=== PATIENT | male | born 1985 | race Caucasian/White ===

== ENCOUNTER 2019-02-17 13:40 | Observation (INO) | payer MEDICAID, OTHER ==
--- NOTE | 2019-02-17 13:48 | C.PDOC ---
History Of Present Illness 33 yr old male w/ no ppmhx p/w abdominal pain, RLQ x2d. Pt notes pain occured starting last night, constant, without radiation, first time occurence. He denies any n/v, constipation or diarrhea. No dark or bloody stool. No trauma or fall. No genital pain or groin pain. No rashes, fever, chills or night sweats. Did not take any medication for the pain. No other complaints. Time Seen by Provider: 02/17/19 13:48 Chief Complaint (Nursing): Abdominal Pain Past Medical History Vital Signs: Last Vital Signs Temp 97.8 F 02/17/19 13:44 Pulse 97 H 02/17/19 13:44 Resp 18 02/17/19 13:44 BP 174/98 H 02/17/19 13:44 Pulse Ox 94 L 02/17/19 13:44 Primary Care Provider: Jay,Med Surg Family History: States: No Known Family Hx - Social History Hx Alcohol Use: No Hx Substance Use: No - Immunization History Hx Tetanus Toxoid Vaccination: No Hx Influenza Vaccination: No Hx Pneumococcal Vaccination: No Review Of Systems Constitutional: Negative for: Fever, Chills, Weakness Eyes: Negative for: Pain, Conjunctivae Inflammation ENT: Negative for: Ear Pain, Ear Discharge, Nose Congestion Cardiovascular: Negative for: Chest Pain, Paroxysmal Noc. Dyspnea Respiratory: Negative for: Cough, Shortness of Breath, SOB with Excertion Gastrointestinal: Positive for: Abdominal Pain. Negative for: Nausea, Vomiting, Constipation, Melena, Hematochezia, Hematemesis, Rectal Pain Genitourinary: Negative for: Dysuria, Frequency, Incontinence, Hematuria, Penile Discharge, Scrotal Pain, Rash, Penile Pain Musculoskeletal: Negative for: Neck Pain, Back Pain Skin: Negative for: Rash, Lesions Neurological: Negative for: Weakness, Headache Physical Exam - Physical Exam Appears: Well, No Acute Distress Skin: Normal Color, Warm, Dry Head: Atraumatic, Normacephalic Eye(s): bilateral: Normal Inspection, PERRL, EOMI Nose: Normal Oral Mucosa: Moist Tongue: Normal Appearing Lips: Normal Appearing Teeth: Normal Dentition Gingiva: Normal Appearing Throat: Normal Neck: Normal Cardiovascular: Rhythm Regular, No Murmur Respiratory: Normal Breath Sounds Gastrointestinal/Abdominal: Soft, Tenderness (rlq), No Mass, No Distention, No Guarding, No Rebound, No Hernia Back: Normal Inspection, No CVA Tenderness, No Vertebral Tenderness Extremity: Normal ROM Extremity: Bilateral: Atraumatic Neurological/Psych: Oriented x3, Normal Speech, Normal Cognition Gait: Steady ED Course And Treatment - Laboratory Results Result Diagrams: 02/17/19 14:10 02/17/19 14:10 O2 Sat by Pulse Oximetry: 94 Medical Decision Making Medical Decision Makin yr old male w/ no ppmhx p/w rlq abd pain. Well appearing on exam. No N/V or diarrhea / constipation. No fall or trauma. No rash. No complaints. TTP w/ out any rebound or guarding. Given RLQ will seek CT. 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 Rees service and give x1 zosyn pt in [facility], agreeable to plan. Disposition - Disposition Disposition Time: 18:29 Condition: STABLE Forms: [employer] (Lao) - Clinical Impression Clinical Impression: RLQ abdominal pain
[2019-02-17] MEDS ORDERED: Sodium Chloride 0.9% 1,000 ML IV ONE (14:04)
[2019-02-17 14:14] LABS: BASO # 0.1 K/uL (0.0-0.2); BASO % 1.2 % (0.0-2.0); EOS # 0.5 K/uL (0.0-0.7); EOS % 5.7 % (0.0-4.0); HEMOGLOBIN 14.9 g/dL (12.0-18.0); LYMPH # 2.9 K/uL (1.0-4.3); LYMPH % 35.1 % (20.0-40.0); MEAN CORPUSCULAR HEMOGLOBIN 30.3 pg (27.0-31.0); MEAN CORPUSCULAR HGB CONC 34.6 g/dL (33.0-37.0); MEAN PLATELET VOLUME 8.8 fL (7.2-11.7); MONO # 0.8 K/uL (0.0-0.8); MONO % 9.3 % (0.0-10.0); NEUT % 48.7 % (50.0-75.0); NRBC % 0.2 % (0.0-2.0); RBC 4.92 Mil/uL (4.40-5.90); WHITE BLOOD COUNT 8.2 K/uL (4.8-10.8)
[2019-02-17 14:15] LABS: MEAN CELL VOLUME 87.4 fL (80.0-94.0)
[2019-02-17 14:31] LABS: ALB/GLOB RATIO 1.1 (1.0-2.1); ALBUMIN 4.5 g/dL (3.5-5.0); ALT/SGPT 67 U/L (21-72); AST/SGOT 42 U/L (17-59); BLOOD UREA NITROGEN 14 mg/dL (9-20); CALCIUM 9.4 mg/dl (8.6-10.4); GFR NON-AFRICAN AMERICAN > 60; LIPASE 112 U/L (23-300)
[2019-02-17] MEDS ORDERED: Iodixanol 320 MG/ML 100 ML BOTTLE IV ONE (15:50)
[2019-02-17 16:29] LABS: SQUAMOUS EPITHIAL < 1 /hpf (0-5); URINE BACTERIA RARE (<OCC); URINE BILIRUBIN NEGATIVE (NEGATIVE); URINE BLOOD NEGATIVE (NEGATIVE); URINE CLARITY Clear (Clear); URINE COLOR Yellow (YELLOW); URINE GLUCOSE (UA) NORMAL (Normal); URINE LEUKOCYTE ESTERASE NEG Leu/uL (Negative); URINE PROTEIN NEGATIVE (NEGATIVE); URINE UROBILINOGEN NORMAL mg/dL (0.2-1.0)
--- NOTE | 2019-02-17 16:49 | CT ---
Date of service: 02/17/2019 PROCEDURE: CT Abdomen and Pelvis with contrast HISTORY: rlq pain COMPARISON: Not available TECHNIQUE: Contrast dose: 100 mL Visipaque 320 Radiation dose: Total exam DLP = 1315.62 mGy-cm. This CT exam was performed using one or more of the following dose reduction techniques: Automated exposure control, adjustment of the mA and/or kV according to patient size, and/or use of iterative reconstruction technique. FINDINGS: LOWER THORAX: Unremarkable. LIVER: Unremarkable. No gross lesion or ductal dilatation. GALLBLADDER AND BILE DUCTS: Unremarkable. PANCREAS: Unremarkable. No gross lesion or ductal dilatation. SPLEEN: Unremarkable. ADRENALS: Unremarkable. No mass. KIDNEYS AND URETERS: 2-3 mm nonobstructing mid left renal calculus. No right renal calculus. No renal mass. No hydronephrosis. VASCULATURE: Unremarkable. No aortic aneurysm. No aortic atherosclerotic calcification or mural plaque present. BOWEL: Sigmoid diverticulosis with scattered colonic diverticula elsewhere. No evidence of diverticulitis. APPENDIX: There is mild dilatation of the appendix up to 8 mm diameter. There is no inflammation about the appendix. Please note that there is some focal inflammatory change slightly remote from the appendix, along the mesenteric border of the cecum and just inferior to the cecum, possibly representing omental infarction. Alternatively, this could represent atypical presentation of acute appendicitis. Consider follow-up. PERITONEUM: Unremarkable. No free fluid. No free air. LYMPH NODES: Shotty subcentimeter lymph nodes are seen medial to the cecum and ascending colon. This is nonspecific. There is no retroperitoneal or pelvic lymphadenopathy. BLADDER: Unremarkable. REPRODUCTIVE: Normal prostate BONES: No acute fracture. OTHER FINDINGS: None. IMPRESSION: Mildly distended appendix. There is ill-defined inflammatory change slightly remote from the appendix, along the mesenteric border of the cecum and inferior to the cecum. In the setting of acute appendicitis, the inflammatory change should be immediately adjacent to the appendix. The possibility of an omental infarction should be considered. Also atypical presentation of appendicitis should be considered. Consider follow-up examination. No other significant abnormality peer
--- NOTE | 2019-02-17 17:06 | CP.PCM.CON ---
Past Patient History - Past Social History Smoking Status: Never Smoked - PSYCHIATRIC Hx Substance Use: No - SURGICAL HISTORY Hx Surgeries: No - ANESTHESIA Hx Anesthesia: No Meds Allergies/Adverse Reactions: Allergies Allergy/AdvReac Type Severity Reaction Status Date / Time No Known Allergies Allergy Verified 02/17/19 13:44 - Medications Medications: Current Medications Sodium Chloride (Sodium Chloride 0.9%) 1,000 mls @ 250 mls/hr IV .Q4H ONE Stop: 02/17/19 18:03 Last Admin: 02/17/19 14:24 Dose: 250 mls/hr Results - Vital Signs Recent Vital Signs: Last Vital Signs Temp 97.8 F 02/17/19 13:44 Pulse 97 H 02/17/19 13:44 Resp 18 02/17/19 13:44 BP 174/98 H 02/17/19 13:44 Pulse Ox 94 L 02/17/19 16:54 - Labs Result Diagrams: 02/17/19 14:10 02/17/19 14:10 Labs: Laboratory Results - last 24 hr 02/17/19 02/17/19 14:10 14:10 WBC 8.2 RBC 4.92 Hgb 14.9 Hct 43.0 MCV 87.4 D MCH 30.3 MCHC 34.6 RDW 13.0 Plt Count 241 MPV 8.8 Neut % (Auto) 48.7 L Lymph % (Auto) 35.1 [place] % (Auto) 9.3 Eos % (Auto) 5.7 H Baso % (Auto) 1.2 Neut # (Auto) 4.0 Lymph # (Auto) 2.9 [place] # (Auto) 0.8 Eos # (Auto) 0.5 Baso # (Auto) 0.1 Sodium 142 Potassium 4.3 Chloride 99 Carbon Dioxide 29 Anion Gap 18 BUN 14 Creatinine 1.0 Est GFR ( Amer) > 60 Est GFR (Non-Af Amer) > 60 Random Glucose 148 H D Calcium 9.4 Total Bilirubin 0.5 AST 42 ALT 67 Alkaline Phosphatase 39 Total Protein 8.5 H Albumin 4.5 Globulin 4.0 H Albumin/Globulin Ratio 1.1 Lipase 112
[2019-02-17] MEDS ORDERED: Piperacillin/Tazobact 3.375 GM in Sodium Chloride 100 ML IVPB STA (18:26)
--- NOTE | 2019-02-17 18:27 | CP.PCM.HP ---
<Dimitris Neumann - Last Filed: 02/17/19 19:40> History of Present Illness - History of Present Illness History of Present Illness: General Surgery Consult for Dr. Crabtree Reason for consult: RLQ, suspected Appendicitis 33 M who denies any significant PMH presents to [facility] for complaint of RLQ pain. Patient was seen and evaluated in the ED. Patient states that pain began 1 days ago. He states that he was eating later in the afternoon then about 30 min to 1 hour later the pain started. He denies any associated fever/chills or nausea/vomiting/diarrhea. Patient states pain has been constant. He describes it as localized sharp pain without radiation. He admits to flatus and a normal BM this morning. Denies cp, SOB, constipation, incontinence, urinary symptoms. CT suggestive of inflammatory changes cannot rule out appendicitis (see full report). PMH: denies PSH: denies ALL: denies fam: denies Social: denies tobacco or illicit drug use, admits to drinking at least 5-10 drinks every weekend Present on Admission - Present on Admission Any Indicators Present on Admission: No History of DVT/PE: No History of Uncontrolled Diabetes: No Urinary Catheter: No Decubitus Ulcer Present: No Review of Systems - Review of Systems All systems: reviewed and no additional remarkable complaints except (as per HPI) Past Patient History - Past Social History Smoking Status: Never Smoked - PSYCHIATRIC Hx Substance Use: No - SURGICAL HISTORY Hx Surgeries: No - ANESTHESIA Hx Anesthesia: No Meds Allergies/Adverse Reactions: Allergies Allergy/AdvReac Type Severity Reaction Status Date / Time No Known Allergies Allergy Verified 02/17/19 13:44 Physical Exam - Constitutional Appears: Well, Non-toxic, No Acute Distress - Head Exam Head Exam: ATRAUMATIC, NORMOCEPHALIC - Eye Exam Eye Exam: EOMI, Normal appearance Pupil Exam: PERRL - ENT Exam ENT Exam: Mucous Membranes Moist - Respiratory Exam Respiratory Exam: NORMAL BREATHING PATTERN - Cardiovascular Exam Cardiovascular Exam: REGULAR RHYTHM - GI/Abdominal Exam GI & Abdominal Exam: Normal Bowel Sounds, Soft, Tenderness (RLQ). absent: Distended, Firm, Guarding, Hernia, Rebound, Rigid Additional comments: +McBurney's point -Rovsing, Psoa, obturator sign - Rectal Exam Rectal Exam: Deferred - Extremities Exam Extremities exam: Positive for: normal capillary refill, pedal pulses present. Negative for: calf tenderness - Back Exam Back exam: absent: CVA tenderness (L), CVA tenderness (R) - Neurological Exam Neurological exam: Alert, CN II-XII Intact, Normal Gait, Oriented x3 - Psychiatric Exam Psychiatric exam: Normal Affect, Normal Mood - Skin Skin Exam: Dry, Intact, Normal Color, Warm Results - Vital Signs Recent Vital Signs: Last Vital Signs Temp 98.2 F 02/17/19 17:18 Pulse 84 02/17/19 17:18 Resp 18 02/17/19 17:18 BP 158/100 H 02/17/19 17:18 Pulse Ox 97 02/17/19 17:18 - Labs Result Diagrams: 02/17/19 14:10 02/17/19 14:10 Labs: Laboratory Results - last 24 hr 02/17/19 02/17/19 02/17/19 14:10 14:10 16:17 WBC 8.2 RBC 4.92 Hgb 14.9 Hct 43.0 MCV 87.4 D MCH 30.3 MCHC 34.6 RDW 13.0 Plt Count 241 MPV 8.8 Neut % (Auto) 48.7 L Lymph % (Auto) 35.1 [place] % (Auto) 9.3 Eos % (Auto) 5.7 H Baso % (Auto) 1.2 Neut # (Auto) 4.0 Lymph # (Auto) 2.9 [place] # (Auto) 0.8 Eos # (Auto) 0.5 Baso # (Auto) 0.1 Sodium 142 Potassium 4.3 Chloride 99 Carbon Dioxide 29 Anion Gap 18 BUN 14 Creatinine 1.0 Est GFR ( Amer) > 60 Est GFR (Non-Af Amer) > 60 Random Glucose 148 H D Calcium 9.4 Total Bilirubin 0.5 AST 42 ALT 67 Alkaline Phosphatase 39 Total Protein 8.5 H Albumin 4.5 Globulin 4.0 H Albumin/Globulin Ratio 1.1 Lipase 112 Urine Color Yellow Urine Clarity Clear Urine pH 6.0 Ur Specific [place] 1.023 Urine Protein Negative Urine Glucose (UA) Normal Urine Ketones Negative Urine Blood Negative Urine Nitrate Negative Urine Bilirubin Negative Urine Urobilinogen Normal Ur Leukocyte Esterase Neg Urine WBC (Auto) < 1 Urine RBC (Auto) < 1 Ur Squamous Epith Cells < 1 Urine Bacteria Rare Assessment & Plan - Assessment and Plan (Free Text) Assessment: 33 M with RLQ pain, rule out appendicitis Plan: -NPO -IVF -IV ABX -Pain control -Anti-emetics PRN -f/u AM labs -serial abd exam -if no improvement or labs worsening then possible OR for diagnostic lap -Discussed with Dr. Gill PGY2 - Date & Time Date: 02/17/19 Time: 17:40 <Joseph Quiles - Last Filed: 02/21/19 12:57> Results - Vital Signs Recent Vital Signs: Last Vital Signs Temp 97.6 F 02/18/19 16:00 Pulse 75 02/18/19 16:00 Resp 20 02/18/19 16:00 BP 163/86 H 02/18/19 16:00 Pulse Ox 96 02/18/19 16:00 - Labs Result Diagrams: 02/18/19 06:42 02/18/19 06:42 Assessment & Plan - Assessment and Plan (Free Text) Plan: All medical record entries made by the Scribe were at my direction. I have reviewed the chart and agree that the record accurately reflects my personal performance of the history, physical exam, and medical decision making.
[2019-02-17] MEDS ORDERED: Lactated Ringer's 1,000 ML ONE (18:51)
[2019-02-17] MEDS ORDERED: Piperacillin/Tazobact 3.375 gm 100 ML IVPB ONE (18:51)
[2019-02-17] MEDS: Lactated Ringer's 1,000 ML IV SCH (18:55)
[2019-02-17 21:09] VITALS: RESP 20
[2019-02-18] MEDS: Piperacill/Tazo 3.375gm in Dex 3.375 GM/50 ML BAG IVPB SCH ×3 (00:48→12:26)
[2019-02-18] MEDS: Lactated Ringer's 1,000 ML IV SCH ×3 (01:30→10:29)
[2019-02-18 07:00] LABS: BASO % 0.6 % (0.0-2.0); EOS # 0.5 K/uL (0.0-0.7); EOS % 6.2 % (0.0-4.0); HEMOGLOBIN 14.5 g/dL (12.0-18.0); LYMPH # 2.8 K/uL (1.0-4.3); LYMPH % 38.3 % (20.0-40.0); MEAN CORPUSCULAR HEMOGLOBIN 29.5 pg (27.0-31.0); MEAN CORPUSCULAR HGB CONC 33.9 g/dL (33.0-37.0); MEAN PLATELET VOLUME 8.6 fL (7.2-11.7); MONO # 0.7 K/uL (0.0-0.8); MONO % 9.9 % (0.0-10.0); NEUT # 3.3 K/uL (1.8-7.0); RBC 4.92 Mil/uL (4.40-5.90); RED CELL DISTRIBUTION WIDTH 12.8 % (11.5-14.5); WHITE BLOOD COUNT 7.3 K/uL (4.8-10.8)
[2019-02-18 07:06] LABS: INR 1.2; PARTIAL THROMBOPLASTIN TIME 38.4 SECONDS (21-34); PROTHROMBIN TIME 12.6 SECONDS (9.7-12.2)
[2019-02-18 07:33] LABS: ALB/GLOB RATIO 1.1 (1.0-2.1); ALBUMIN 4.3 g/dL (3.5-5.0); ALT/SGPT 64 U/L (21-72); AST/SGOT 59 U/L (17-59); BLOOD UREA NITROGEN 13 mg/dL (9-20); CALCIUM 9.2 mg/dl (8.6-10.4); GFR NON-AFRICAN AMERICAN > 60
--- NOTE | 2019-02-18 09:54 | CP.PCM.PN ---
<Shabbir Beard - Last Filed: 02/18/19 09:51> Subjective - Date & Time of Evaluation Date of Evaluation: 02/18/19 Time of Evaluation: 09:51 - Subjective Subjective: Surgery: Dr. Quiles Patient with improved pain today. Denies n/v/f/c. States he is hungry and would like to eat. Objective - Vital Signs/Intake and Output Vital Signs (last 24 hours): Temp Pulse Resp BP Pulse Ox 98.2 F 84 20 149/90 95 02/18/19 08:32 02/18/19 08:32 02/18/19 08:32 02/18/19 08:32 02/18/19 08:32 Intake and Output: 02/18/19 02/18/19 06:59 18:59 Intake Total 450 1200 Balance 450 1200 - Medications Medications: Current Medications Lactated Ringer's (Lactated Ringer's) 1,000 mls @ 150 mls/hr IV .Q6H40M [facility] Last Admin: 02/18/19 08:25 Dose: Not Given Piperacillin Sod/Tazobactam Sod (Zosyn 3.375 Gm Iv Premix) 3.375 gm in 50 mls @ 100 mls/hr IVPB Q6H [facility]; Protocol Last Admin: 02/18/19 06:24 Dose: 100 mls/hr Morphine Sulfate (Morphine) 2 mg IVP Q4 PRN PRN Reason: Pain, moderate (4-7) Ondansetron HCl (Zofran Inj) 4 mg IVP Q6H PRN PRN Reason: Nausea/Vomiting Last Admin: 02/17/19 20:30 Dose: 4 mg Pneumococcal Polyvalent Vaccine (Pneumovax 23 Vaccine) 0.5 ml IM .ONCE ONE Stop: 02/20/19 10:01 - Labs Labs: 02/18/19 06:42 02/18/19 06:42 PT 12.6 SECONDS (9.7-12.2) H 02/18/19 06:42 INR 1.2 02/18/19 06:42 APTT 38.4 SECONDS (21-34) H 02/18/19 06:42 - Constitutional Appears: Non-toxic, No Acute Distress - Head Exam Head Exam: ATRAUMATIC, NORMOCEPHALIC - Eye Exam Eye Exam: EOMI, Normal appearance - ENT Exam ENT Exam: Mucous Membranes Moist - Respiratory Exam Respiratory Exam: NORMAL BREATHING PATTERN. absent: Respiratory Distress - Cardiovascular Exam Cardiovascular Exam: REGULAR RHYTHM. absent: Tachycardia - GI/Abdominal Exam GI & Abdominal Exam: Soft, Tenderness (minimally tender in RLQ). absent: Distended, Guarding Assessment and Plan - Assessment and Plan (Free Text) Assessment: 33 y/o male with abdominal pain, possible mesenteric adenitis vs enteritis Plan: -air in appendix with no direct inflammation -will trial reg diet and cont abx -if patient tolerates may consider d/c with po abx -cont to monitor -d/w Dr. Cartagena PGY4 <Joseph Quiles - Last Filed: 02/21/19 12:51> Objective - Vital Signs/Intake and Output Vital Signs (last 24 hours): Temp Pulse Resp BP Pulse Ox 97.6 F 75 20 163/86 H 96 02/18/19 16:00 02/18/19 16:00 02/18/19 16:00 02/18/19 16:00 02/18/19 16:00 - Labs Labs: 02/18/19 06:42 02/18/19 06:42 PT 12.6 SECONDS (9.7-12.2) H 02/18/19 06:42 INR 1.2 02/18/19 06:42 APTT 38.4 SECONDS (21-34) H 02/18/19 06:42 Assessment and Plan - Assessment and Plan (Free Text) Plan: All medical record entries made by the Scribe were at my direction. I have reviewed the chart and agree that the record accurately reflects my personal performance of the history, physical exam, and medical decision making.
[2019-02-18 16:06] VITALS: BP 163/86; PULSE 75; TEMP 97.6; O2SAT 96
[2019-02-20] MEDS ORDERED: Pneumococcal 23-Valent Vaccine IM ONE (10:00)
== END 2019-02-18 19:08 | disposition home or self-care (01) ==
LOC: C.ER 13:40 → C.9E 18:26 → C.3T 20:30 → C.9E 20:40 → C.3T 21:04
PROVIDERS: ADMIT Surgery; ATTEND Surgery
DX: R10.31 Right lower quadrant pain (principal)
CPT/HCPCS: 36415; 74177; 80053; 81001; 82948; 83690; 83735; 84100; 85025; 85610; 85730; 86850; 86900; 96374; 99284; G0378; J1885; J2270; J2405; J2543; J7030; J7120; Q9967